=== PATIENT | female | born 1955 | race Caucasian/White ===

== ENCOUNTER 2020-01-25 13:12 | Outpatient (REF) | payer MEDICAID, SELFPAY ==
[2020-01-25 19:23] LABS: Calculated LDL 124 mg/dL (<100); Cholesterol 249 mg/dL (<200); HDL Cholesterol 82 mg/dL (40-60); Triglyceride 219 mg/dL (<150)
[2020-01-25 19:36] LABS: Hemoglobin A1C 5.7 % (3.8-5.6)
== END 2020-01-25 13:32 ==
LOC: NCHCN 13:12
PROVIDERS: PCP Nurse Practitioner Family; Visit Provider Registered Nurse
DX: R73.03 Prediabetes (principal); R73.9 Hyperglycemia, unspecified; Z13.220 Encounter for screening for lipoid disorders
CPT/HCPCS: 80061; 83036

== ENCOUNTER 2022-05-14 17:50 | Outpatient (REF) | payer MEDICAID, SELFPAY ==
[2022-05-14 21:35] LABS: ALT 63 U/L (14-59); AST 25 U/L (15-37); Albumin 3.9 g/dL (3.4-5.0); Alkaline Phosphatase 107 U/L (46-116); Anion Gap 7.2 mmol/L (3-11); BUN 15 mg/dL (7-18); Bilirubin, Total 0.5 mg/dL (0.2-1.0); CO2 27.8 mmol/L (21.0-32.0); CREATININE 0.8 mg/dL (0.55-1.02); Calcium 9.9 mg/dL (8.5-10.1); Chloride 103 mmol/L (98-107); Estimated GFR 82.23 (mL/min/1.73m2); Glucose 89 mg/dL (74-106); Potassium 4.2 mmol/L (3.5-5.1); Sodium 138 mmol/L (136-145); Total Protein 7.5 g/dL (6.4-8.2)
== END 2022-05-14 17:51 | disposition home or self-care (01) ==
LOC: NCHCN 17:50
PROVIDERS: PCP Nurse Practitioner Family; Visit Provider Registered Nurse
DX: I10 Essential (primary) hypertension (principal); R73.03 Prediabetes; E66.9 Obesity, unspecified
CPT/HCPCS: 80053; 83036

== ENCOUNTER 2022-05-22 11:37 | Outpatient (REF) | payer MEDICARE, MEDICAID, SELFPAY ==
[2022-05-23 09:53] LABS: Hepatitis C Ab w Rflx HCV PCR Negative (Negative)
== END 2022-05-22 11:38 | disposition home or self-care (01) ==
LOC: NCHCN 11:37
PROVIDERS: PCP Nurse Practitioner Family; Visit Provider Registered Nurse
DX: K76.0 Fatty (change of) liver, not elsewhere classified (principal); Z11.59 Encounter for screening for other viral diseases
CPT/HCPCS: 86803

== ENCOUNTER 2025-03-07 15:35 | Outpatient (REF) | payer MEDICARE, SELFPAY ==
[2025-03-07 21:05] LABS: HCT 47.0 % (36.0-46.0); HGB 15.8 g/dL (11.2-15.7); MCH 31.4 pg (27.0-33.0); MCHC 33.6 % (32.0-36.0); MCV 93 fL (80-95); MPV 11.1 fL (8.0-11.0); Platelet Count 233 10^3/uL (130-400); RBC 5.03 10^6/uL (3.93-5.22); RDW 12.3 % (11.7-14.6); RDW-SD 42.5 fL; WBC 7.49 10^3/uL (4.4-10.8)
[2025-03-07 21:27] LABS: ALT 74 U/L (14-59); AST 20 U/L (15-37); Albumin 3.9 g/dL (3.4-5.0); Alkaline Phosphatase 120 U/L (46-116); Anion Gap 8.1 mmol/L (3-11); BUN 16 mg/dL (7-18); Bilirubin, Total 0.9 mg/dL (0.2-1.0); CO2 27.9 mmol/L (21.0-32.0); Calcium 10.1 mg/dL (8.5-10.1); Calculated LDL 103 mg/dL (<100); Chloride 103 mmol/L (98-107); Cholesterol 220 mg/dL (<200); Estimated GFR 98.32 (mL/min/1.73m2); Glucose 105 mg/dL (74-106); HDL Cholesterol 96 mg/dL (>or=50); Potassium 4.3 mmol/L (3.5-5.1); Sodium 139 mmol/L (136-145); Total Protein 7.3 g/dL (6.4-8.2); Triglyceride 109 mg/dL (<150)
[2025-03-07 21:59] LABS: Hemoglobin A1C 6.0 % (<5.7)
== END 2025-03-07 15:36 | disposition home or self-care (01) ==
LOC: NCHCN 15:35
PROVIDERS: Visit Provider Nurse Practitioner Family
DX: Z13.220 Encounter for screening for lipoid disorders (principal); Z13.1 Encounter for screening for diabetes mellitus; Z00.00 Encounter for general adult medical examination without abnormal findings
CPT/HCPCS: 80053; 80061; 85027; 83036